=== PATIENT | male | born 1995 | race Caucasian/White ===

== ENCOUNTER 2020-06-24 08:46 | Emergency (ER) | payer SELFPAY ==
[2020-06-24 08:56] VITALS: BP 99/53; PULSE 74; RESP 17; TEMP 37.3; O2SAT 99; BMI 22.1
--- NOTE | 2020-06-24 09:13 | CT_ITS ---
EXAMINATION: CT HEAD WITHOUT CONTRAST CT CERVICAL SPINE WITHOUT CONTRAST CLINICAL INFORMATION: Ceiling fell on head COMPARISON: None. TECHNIQUE: Multidetector CT imaging of the head and cervical spine was performed without the use of intravenous contrast. Multiplanar reformats are reviewed. DLP: 1130 mGy-cm. FINDINGS: There is no evidence of acute intracranial hemorrhage or territorial infarction. No abnormal mass effect or midline shift is seen. Caldwell to white matter differentiation is well preserved. No extra-axial fluid collections are identified. The ventricles are normal in size. There is no abnormal attenuation within the brain parenchyma. The osseous structures and soft tissues are normal. The mastoid air cells and visualized portions of the paranasal sinuses are well-aerated. Atlantooccipital alignment is maintained. The vertebral bodies and posterior elements align normally. No acute fracture or subluxation. Vertebral body heights and intervertebral disc spaces are preserved. No significant degenerative changes are appreciated. No central canal or foraminal narrowing. The cervicomedullary junction and spinal cord are grossly unremarkable. The paraspinal soft tissues are unremarkable. The imaged lung apices are clear CT/CT cervical spine wo con IMPRESSION: No acute intracranial pathology. No cervical spine fracture or subluxation.
--- NOTE | 2020-06-24 09:13 | CT_ITS ---
EXAMINATION: CT HEAD WITHOUT CONTRAST CT CERVICAL SPINE WITHOUT CONTRAST CLINICAL INFORMATION: Ceiling fell on head COMPARISON: None. TECHNIQUE: Multidetector CT imaging of the head and cervical spine was performed without the use of intravenous contrast. Multiplanar reformats are reviewed. DLP: 1130 mGy-cm. FINDINGS: There is no evidence of acute intracranial hemorrhage or territorial infarction. No abnormal mass effect or midline shift is seen. Caldwell to white matter differentiation is well preserved. No extra-axial fluid collections are identified. The ventricles are normal in size. There is no abnormal attenuation within the brain parenchyma. The osseous structures and soft tissues are normal. The mastoid air cells and visualized portions of the paranasal sinuses are well-aerated. Atlantooccipital alignment is maintained. The vertebral bodies and posterior elements align normally. No acute fracture or subluxation. Vertebral body heights and intervertebral disc spaces are preserved. No significant degenerative changes are appreciated. No central canal or foraminal narrowing. The cervicomedullary junction and spinal cord are grossly unremarkable. The paraspinal soft tissues are unremarkable. The imaged lung apices are clear CT/CT head/brain wo con IMPRESSION: No acute intracranial pathology. No cervical spine fracture or subluxation.
--- NOTE | 2020-06-24 09:14 | ED_ITS ---
HPI - Neck Pain/Injury General Chief Complaint: Neck Pain/Injury Stated Complaint: NECK AND LOWER BACK PAIN NO INJ Time Seen by Provider: 06/24/20 09:13 Source: patient Mode of arrival: ambulatory Limitations: no limitations History of Present Illness HPI Narrative: Patient states while using the bathroom the ceiling in his bathroom fell directly on his neck. Patient denies falling to the ground or loss of consciousness. Patient states pain ever since this occurred. Patient states injury occurred this morning. Patient denies any runny nose. Patient denies any bleeding from ears, bleeding from nose, dizziness, headache, nausea, or vomiting. Related Data Allergies Allergy/AdvReac Type Severity Reaction Status Date / Time nut - unspecified [NUTS] Allergy Unknown ANALPHYLAXI Verified 06/24/20 08:59 S Review of Systems Review of Systems: Yes all other systems are reviewed and are negative Constitutional: Constitutional: Reports as per HPI and Reports no additional constitutional complaints Eyes: Eyes: Reports as per HPI and Reports no additional eye complaints ENT: Reports system reviewed and no additional complaints, except as documented, Reports as per HPI and Reports neck pain Cardiovascular: Cardiovascular: Reports as per HPI and Reports no additional cardiovascular complaints Respiratory: Respiratory: Reports as per HPI and Reports no additional respiratory complaints Gastrointestinal: Gastrointestinal: Reports as per HPI and Reports no additional gastrointestinal complaints Genitourinary: Genitourinary: Reports no additional male genitourinary complaints and Reports as per HPI Musculoskeletal: Musculoskeletal: Reports no additional musculoskeletal complaints, Reports as per HPI and Reports neck pain Neurologic: Reports system reviewed and no additional complaints, except as documented and Reports as per HPI Psychiatric: Psychiatric: Reports no additional psychiatric complaints and Reports as per HPI [facility] Social History Social History Advance Directives: No Advance Directives Information Provided: No Physical Exam Vital Signs: Vital Signs: Vital Signs Temp Pulse Resp BP Pulse Ox 06/24/20 08:56 99.2 F 74 17 99/53 L 99 Body Mass Index 22.1 Const: General: cooperative, healthy appearing, comfortable, no acute distress, well developed, alert, awake and Physically active Orientation/consciousness: oriented to person, oriented to place, oriented to time and patient oriented x3 HENMT: Head: Yes normal to inspection, Yes No palpable skull fracture present, Yes atraumatic, No abrasion, No Chopra's sign, No contusion, No cranial bruits, No hematoma, No laceration, No palpable skull fracture, No raccoon eyes, No scalp lesion, No scalp tenderness and No Temporal artery tenderness present Ears: hearing grossly normal bilaterally, external ears normal and TM's normal bilaterally General nose exam: Normal external nose present Face and sinus: Yes normal facial exam Mouth: Normal oral and palatal mucosa present Eyes: General: appearance normal, both eyes and all related structures Visual Avila: normal visual avila by confrontation Neck: Neck: Yes normal visual inspection, Yes full ROM, Yes no lymphadenopathy, Yes no meningeal signs and Yes tender ( miled cervical midline tenderness on palpation) Chest: Other: negative for any ecchymosis or tenderness Chest palpation & inspection: normal inspection of the chest, normal palpation of entire chest wall and no localized rib tenderness Resp: Other: negative for any ecchymosis or tenderness Effort & Inspection: normal respiratory effort, able to speak in complete sentences, normal respiratory pattern, no audible wheezes, no cough, no paradoxical thoraco-abdom movements, no pursed lip breathing, no segmental paradox chest wall movement and no stridor Auscultation: clear to auscultation bilaterally, no crackles, no rales, no rhonchi and no wheezes Cardio: Jugular venous distension: no JVD Heart sounds: S1 normal heart sound present and S2 normal heart sound present GI: Other: negative for any ecchymosis or tenderness. Inspection: Yes normal to inspection and No abdominal wall ecchymosis Palpation (GI): not soft, not firm, nontender, no guarding and not rigid : General: No CVA tenderness and Yes no CVA tenderness Back/Spine/Pelvis: Other: Negative for any ecchymosis Back: no CVA tenderness, No CVA tenderness and No back tenderness Skin: Other: negative for any ecchymosis, lacerations, abrasions, rash, or erythema General skin exam: no rashes or lesions noted Trauma: no lacerations or abrasions Neuro: General: oriented to person, oriented to place, oriented to time, patient oriented x3, gait normal, no meningeal signs and CN's II-XI intact bilaterally Cranial nerves: Yes CN's II-XII intact bilaterally Extrem: General: Yes normal to inspection and Yes full ROM Psych: Appearance: grossly normal, well kempt and disheveled Course Course Course Narrative: due to mechanism of trauma, patient will be sent for head CT and C-spine imaging. This will be done to rule out any brain injury or cervical spine fracture other highly unlikely. Patient on his phone and is alert oriented x3. Negative for any neuro deficit. Reevaluation(s) Reevaluation #1: PATIENT STATES HE HAS TO LEAVING CANNOT WAIT FOR RESULTS. PATIENT'S explained IMAGING WAS DONE TO RULE OUT WORSE CASE SCENARIO SUCH BRAIN BLEED, SKULL FRACTURE, NECK FRACTURE WHICH COULD LEAD TO , PARALYSIS, OR SEVERE ALTERATION OF LIVELIHOOD. PATIENT STILL WANTS TO LEAVE AGAINST MEDICAL ADVICE DUE TO HIS LANDLORD BEING AT HIS HOME TO EVALUATE THE DAMAGE. Time: 09:57 MDM - Neck Pain/Injury MDM Narrative Medical decision making narrative: CONTUSION. HEAD INJURY Discharge Plan Discharge Clinical Impression: Head injury, Contusion of neck Patient Disposition: Left Against Medical Advice Instructions: Head Injury (ED), Contusion in Adults (ED) Additional Instructions: RETURN TO ED FOR HEADACHE, DIZZINESS, NAUSEA, VOMITING, TINGLING IN UPPER EXTREMITIES, PARALYSIS OF UPPER EXTREMITIES, OR ANY OTHER CONCERNING SYMPTOMS. Stand Alone Forms: Against Medical Advice Interventions: ED Discharge Assessment Last Done: 06/24/20 10:01 Discharge Date/Time: 06/24/20 10:02 Print Language: Andorran
--- NOTE | 2020-06-24 09:56 | PC.NURSE ---
PT STATING I HAVE TO LEAVE TO GO LET MY LAND LORD INTO MY HOUSE SO HE CAN SEE THE DAMAGE IN THE BATHROOM. PT LEAVING AMA AND WE WILL CALL HIM WITH RESULTS OF CT.
== END 2020-06-24 10:02 | disposition left against medical advice (07) ==
PROVIDERS: Emergency Provider Emergency Medicine
DX: S10.93XA Contusion of unspecified part of neck, initial encounter (principal); M54.2 Cervicalgia; G44.309 Post-traumatic headache, unspecified, not intractable; M54.5 Low back pain; Y29.XXXA Contact with blunt object, undetermined intent, initial encounter; Y93.9 Activity, unspecified; Y92.002 Bathroom of unspecified non-institutional (private) residence as the place of occurrence of the external cause; Y99.9 Unspecified external cause status
CPT/HCPCS: 70450; 72125; 99283; 99284